=== PATIENT | female | born 1960 | race Caucasian/White ===

== ENCOUNTER → 2019-08-04 14:24 | Outpatient (CLI) | payer OTHER, SELFPAY ==
--- NOTE | ~2019-08-04 | MM_ITS ---
EXAMINATION: MM screening keanu BI w jair HISTORY: Screening mammogram TECHNIQUE: Craniocaudal and mediolateral oblique 3-D tomosynthesis images were obtained and synthetic 2-D images were generated. CAD analysis was submitted and interpreted. COMPARISON: 07/30/2014, 02/21/2013, 09/01/2010 BREAST PARENCHYMAL COMPOSITION: The breasts are heterogeneously dense, which may obscure small masses . FINDINGS: Scattered benign-appearing calcifications are present. There is no evidence of suspicious m ass, calcification, or architectural distortion to suggest malignancy in either breast. There has bee n no suspicious interval change. IMPRESSION: 1. No mammographic evidence of malignancy. 2. Recommend routine screening mammography in one year. BI-RADS Category 2: Benign finding(s). Reviewed, dictated and finalized at location A. GER GRAPHIC
--- NOTE | ~2019-08-04 | DEXA_ITS ---
Bone Density Report Name: Юлия Hadley Age: 59 Sex: Female Ethnicity: White Date of : 1960 Indication: osteopenia; asthma or emphysema; hysterectomy; postmenopausal Referring Provider: Pablo Scruggs Study: Bone densitometry was performed. Exam Date: August 04, 2019 Accession number: [id number] Bone Density: Region BMD T-score Z-score Classification AP Spine (L1-L4) 0.864 -1.7 -0.2 Osteopenia Femoral Neck (Left) 0.593 -2.3 -1.0 Osteopenia Total Hip (Left) 0.712 -1.9 -0.9 Osteopenia Femoral Neck (Right) 0.580 -2.4 -1.1 Osteopenia Total Hip (Right) 0.690 -2.1 -1.1 Osteopenia Total Hip Mean 0.701 -2.0 -1.0 Osteopenia World Health Organization criteria for BMD impression classify patients as: Normal (T-score at or above -1.0), Osteopenia (T-score between -1.0 and -2.5), or Osteoporosis (T-score at or below -2.5). 10-year Fracture Risk(1): Major Osteoporotic Fracture 10% Hip Fracture 1.8% Reported Risk Factors: [place] (), Neck BMD=0.580, BMI=22.0 (1) FRAX(R) Version 3.08. Fracture probability calculated for an untreated patient. Fracture probability may be lower if the patient has received treatment. Previous Exams: Region Exam Age BMD T-score BMD Change BMD Change Date g/cm2 vs Baseline vs Previous AP Spine(L1-L4) 08/04/2019 59 0.864 -1.7 -0.076* -0.052* 07/20/2013 53 0.916 -1.2 -0.024* -0.096* 05/04/2011 51 1.012 -0.3 0.072* 0.072* 03/26/2008 48 0.940 -1.0 Total Hip(Left) 08/04/2019 59 0.712 -1.9 -0.003 -0.079* 07/20/2013 53 0.791 -1.2 0.076* 0.035* 05/04/2011 51 0.756 -1.5 0.041* 0.041* 03/26/2008 48 0.715 -1.9 Total Hip(Right) 08/04/2019 59 0.690 -2.1 -0.054* -0.067* 07/20/2013 53 0.757 -1.5 0.013 0.028* 05/04/2011 51 0.729 -1.7 -0.015 -0.015 03/26/2008 48 0.744 -1.6 *Denotes significance at 95% confidence level, LSC for AP Spine = 0.022 g/cm2, LSC for Total Hip = 0.027 g/cm2 Clinical Information Provided by Patient: Has used the following medications: Vitamin D, Calcium, MTV Has the following medical conditions: Asthma or Emphysema, Hysterectomy Patient maximum height was 62 Menopause Age: 38 Drinks caffeinated beverages Onset of menses at age 12 Number of children 1 Impression: The patient has
== END ==
PROVIDERS: PCP Family Medicine; Visit Provider Physician Assistant
DX: Z12.31 Encounter for screening mammogram for malignant neoplasm of breast (principal); M85.88 Other specified disorders of bone density and structure, other site; M85.852 Other specified disorders of bone density and structure, left thigh; M85.851 Other specified disorders of bone density and structure, right thigh
CPT/HCPCS: 77063; 77067; 77080

== ENCOUNTER 2022-05-04 10:22 | Outpatient (CLI) | payer OTHER, SELFPAY ==
--- NOTE | ~2022-05-04 | XR_ITS ---
XR chest 2V DATE: 05/04/2022 10:43 INDICATION: Productive cough for 4 weeks TECHNIQUE: PA and lateral views COMPARISON: None FINDINGS: Normal heart size. No hilar or mediastinal enlargement. Mild bilateral hyperinflation of the lungs. No pulmonary infiltrate or consolidation, pleural effusio n or pulmonary vascular congestion or pneumothorax. Included skeletal structures are unremarkable. IMPRESSION: No active cardiopulmonary disease Reviewed, dictated and finalized at location A. TER SUBMARINE CABLE
== END 2022-05-04 10:23 | disposition home or self-care (01) ==
PROVIDERS: PCP Family Medicine; Visit Provider Physician Assistant
DX: R05.9 Cough, unspecified (principal)
CPT/HCPCS: 71046

== ENCOUNTER 2022-05-13 11:25 | Emergency (ER) | payer OTHER, SELFPAY ==
--- NOTE | ~2022-05-13 | XR_ITS ---
EXAMINATION: XR chest 1V portable 05/13/2022 11:55 INDICATION: Cough for 5 weeks PROCEDURE: AP portable chest COMPARISON: 05/04/2022 FINDINGS: The lungs are clear. The cardiomediastinal silhouette is within normal limits. There are no pleural effusions. There is no pneumothorax suspected. The lungs are hyperinflated which is cons istent with, but not diagnostic of chronic obstructive pulmonary disease. IMPRESSION: 1: NO ACUTE CARDIOPULMONARY DISEASE. Reviewed, dictated and finalized at location B. OMER ASSOCIATE
[2022-05-13 11:36] VITALS: BP 126/66; PULSE 97; RESP 18; TEMP 37.3; O2SAT 98
--- NOTE | 2022-05-13 12:11 | ECG_ITS ---
Measurements Intervals [place] Rate: 79 P: 60 MA: 158 QRS: 7 QRSD: 88 T: 38 QT: 361 QTc: 414 Interpretive Statements SINUS RHYTHM DELAYED PRECORDIAL R/S TRANSITION BASELINE ARTIFACT- III BORDERLINE ECG NO PREVIOUS ECG AVAILABLE FOR COMPARISON Electronically Signed On 05-13-2022 15:27:35 SECURITIES CLERK by Jordon Painter D.O.
--- NOTE | 2022-05-13 12:13 | ED.URI ---
HPI - URI/Sore Throat General Chief Complaint: Upper Respiratory Infection Stated Complaint: cough, sob since 04/08 Time Seen by Provider: 05/13/22 12:01 History of Present Illness HPI Narrative: Patient is a 62-year-old female with a history of asthma presenting with URI symptoms and chest pain. Patient states that about a month ago she was on vacation and came down with a cold. She has continued to have nasal congestion and cough since that time. She saw her PCP several weeks ago who started her on oral steroids, steroid inhaler, cough medicine. Said this helped temporarily but unfortunately the symptoms have continued. Today, she developed left-sided chest pain that is worse with inspiration, cough, movement. Reports mild shortness of breath. No fevers or chills, headache, numbness or weakness, lightheadedness, abdominal pain, vomiting, leg swelling, dysuria. Reports intermittent chronic diarrhea. Related Data Allergies Allergy/AdvReac Type Severity Reaction Status Date / Time cat dander Allergy Unknown sneezing Verified 04/27/22 11:37 mold Allergy Unknown Unknown Verified 04/27/22 11:37 Review of Systems Review of Systems: All systems reviewed & are unremarkable except as noted in HPI and below Constitutional: Constitutional: Denies chills, Denies fever(s) and Denies weakness Respiratory: Respiratory: Reports chest congestion and Reports cough PMFSH Past Medical History Medical History Diffuse cystic mastopathy Irritable bowel syndrome Family History Family History Father Diabetes mellitus Grandparent Diabetes mellitus Hypertension Family history of cardiovascular disease Family history of Alzheimer's disease Mother Family history of rheumatoid arthritis Family history of Alzheimer's disease, Onset Age: 70 Other No family history of malignant neoplasm Social History Social History Smoking status: Never smoker Alcohol intake: current Exam Narrative: GENERAL: in no acute distress, nontoxic, intermittently coughing HEAD: Normocephalic, atraumatic. EYES: PERRLA and EOMI. ENT: Nares clear, no rhinorrhea or epistaxis. Mucous membranes moist. NECK: Supple. CHEST: Clear to auscultation. No respiratory distress. HEART: Regular rate and rhythm. No murmur heard. Normal peripheral pulses. ABDOMEN: Soft, nontender, nondistended, normal active bowel sounds. EXTREMITIES: Normal range of motion. No edema. SKIN: Warm, dry, no rash. NEURO: No focal deficits. Alert and oriented x3. PSYCH: Normal mood and affect. Course Vital Signs Vital signs: Vital Signs Temperature 99.2 F 05/13/22 11:36 Pulse Rate 97 05/13/22 11:36 Respiratory Rate 18 05/13/22 11:36 Blood Pressure 126/66 05/13/22 11:36 Pulse Oximetry 98 05/13/22 11:36 Oxygen Delivery Room Air 05/13/22 11:36 Temperature 99.2 F 05/13/22 11:36 Pulse Rate 89 05/13/22 16:27 Respiratory Rate 18 05/13/22 16:27 Blood Pressure 146/88 H 05/13/22 16:27 Pulse Oximetry 97 05/13/22 16:27 Oxygen Delivery Room Air 05/13/22 11:36 MDM - URI/Sore Throat MDM Narrative Medical decision making narrative: Patient is a 62-year-old female presenting with a month of URI symptoms and 1 day of chest pain. Vitals within normal limits. Patient is nontoxic and in no acute distress. Exam is otherwise remarkable for the above. Chest x-ray shows no acute abnormalities. EKG per my interpretation shows normal sinus rhythm, normal axis and intervals, no ST elevations or depressions. Tropes x2 are negative. Patient is positive for influenza A. Blood work is otherwise unremarkable. Discussed appropriate supportive care and return precautions. Advised PCP follow-up. Patient voiced understanding and is agreeable to plan. Discharged in stable condition. [facility]
[2022-05-13] MEDS: KETOROLAC 15 MG/ML VIAL (*BKC) IV PUSH (12:26)
[2022-05-13] MEDS: SODIUM CHLORIDE 0.9% IV 1,000 ML 999 ML IV CONT (12:27)
[2022-05-13 12:34] LABS: Basophils Percent Auto 0.6 % (0.2-1.2); Eosinophils Absolute Auto 0.1 K/mm3 (0-0.3); Eosinophils Percent Auto 1.5 % (0-4.4); Hematocrit 40.8 % (37.0-47.0); Hemoglobin 13.7 g/dL (12.0-15.0); Immature Granulocyte Absolute 0.01 K/mm3 (0.00-0.031); Immature Granulocyte Percent A 0.2 % (0-0.5); Lymphocytes Absolute Auto 0.93 K/mm3 (0.9-3.2); Lymphocytes Percent Auto 19.9 % (18.3-44.2); Mean Corpuscular HGB Conc 33.6 g/dl (32-36); Mean Corpuscular Hemoglobin 32.2 pg (26-34); Mean Platelet Volume 9.7 fl (7.4-10.4); Monocytes Absolute Auto 0.7 K/mm3 (0.1-0.6); Monocytes Percent Auto 15.8 % (2.6-8.5); Neutrophils Absolute Auto 2.9 K/mm3 (1.3-6.7); Platelet Count Result 193 k/mm3 (150-375); Red Blood Count 4.25 M/mm3 (4.2-5.4); Red Cell Distribution Width 13.4 % (11.5-14.5); White Blood Count 4.7 K/mm3 (4.5-10.0)
[2022-05-13 12:44] LABS: Alanine Aminotransferase 34 U/L (6-35); Albumin Level 4.4 g/dL (3.5-5.1); Alkaline Phosphatase 69 U/L (38-126); Anion Gap 6 mmol/L (8-16); Aspartate Amino Transferase 48 U/L (14-36); Bilirubin,Total 0.4 mg/dL (0.2-1.3); Blood Urea Nitrogen 11 mg/dL (7-17); Calcium 9.4 mg/dL (8.4-10.2); Carbon Dioxide 26 mmol/L (22-30); Chloride 103 mmol/L (98-107); Estimated CRCL calculation 56 ml/min; Estimated Glomerular Filt Rate > 60; Glucose 92 mg/dL (65-110); Potassium 3.7 mmol/L (3.4-5.0); Sodium 135 mmol/L (137-145)
[2022-05-13 12:54] LABS: D Dimer 0.44 ug/mL (<0.48)
[2022-05-13 12:55] LABS: Troponin I < 0.012 ng/mL (0.000-0.034)
[2022-05-13 13:11] LABS: Influenza A QL RT-PCR Positive (Negative); Influenza B QL RT-PCR Negative (Negative); RSV RNA, RT-PCR Negative (Negative); SARS-CoV-2 RNA PCR Negative
[2022-05-13 13:56] VITALS: BP 136/84; PULSE 90; RESP 16; O2SAT 98
[2022-05-13 16:08] LABS: Troponin I < 0.012 ng/mL (0.000-0.034)
[2022-05-13 16:27] VITALS: BP 146/88; PULSE 89; RESP 18; O2SAT 97
== END 2022-05-13 16:28 | disposition home or self-care (01) ==
PROVIDERS: Emergency Medicine; Emergency Provider Emergency Medicine; PCP Family Medicine
DX: J10.1 Influenza due to other identified influenza virus with other respiratory manifestations (principal); N60.19 Diffuse cystic mastopathy of unspecified breast; K58.9 Irritable bowel syndrome, unspecified; Z20.822 Contact with and (suspected) exposure to COVID-19; R94.31 Abnormal electrocardiogram [ECG] [EKG]
CPT/HCPCS: 36415; 71045; 80053; 84484; 85025; 85380; 87637; 93005; 96365; 96366; 96375; 99284; J0131; J1885; J7030

== ENCOUNTER 2022-05-21 14:39 | Outpatient (CLI) | payer OTHER, SELFPAY ==
[2022-05-21 18:56] LABS: Cholesterol 269 mg/dL (0-200); HDL Direct 88 mg/dL; Triglycerides 109 mg/dL (<150)
[2022-05-21 19:07] LABS: LDL Cholesterol Direct 110 mg/dL
[2022-05-23 11:38] LABS: NIL 0.02 IU/mL; Quantiferon TB Plus, 1T NEGATIVE (NEGATIVE); TB1-NIL 0.05 IU/mL; TB2-NIL 0.04 IU/mL
[2022-05-26 17:38] LABS: EBV Nuclear Ab Interpretation Past; EBV Virus Capsid Ag IgM Ab <36.00 U/mL (<36.00)
== END 2022-05-21 14:40 | disposition home or self-care (01) ==
LOC: ANHGOSHLAB 14:41
PROVIDERS: PCP Family Medicine; Referring Provider Physician Assistant; Visit Provider Family Medicine
DX: J45.901 Unspecified asthma with (acute) exacerbation (principal); E78.5 Hyperlipidemia, unspecified
CPT/HCPCS: 36415; 80061; 86480; 86664; 86665

== ENCOUNTER 2022-06-29 15:02 | Outpatient (CLI) | payer OTHER, SELFPAY ==
--- NOTE | 2022-06-29 17:37 | P.PCNPFT_ITS ---
PFT Procedure Performed PFT Procedure Performed Spirometry with Pre/Post Bronchodilator PFT Interpretation This is a pulmonary function test with pre and post-bronchodilator spirometry. The test was performed and results interpreted in accordance with the 2019 and 2005 ATS/ERS Task Force guidelines respectively using the Global Lung Function Initiative-2012 reference equations. Patient demonstrated good effort and cooperation. Reproducibility criteria were met. The quality of the pre bronchodilator spirometry maneuver was Grade A and post bronchodilator spirometry maneuver was Grade A. Findings: Spirometry: the contour the inspiratory and expiratory flow tracing are normal. The pre bronchodilator FVC is 2.62 L, 92% predicted. The pre bronchodilator FEV1 is 2.08 L, 93% predicted. The pre bronchodilator FEV1: FVC ratio 79%. The post bronchodilator FVC is 2.52 L, representing a 4% decrease. The post bronchodilator FEV1 is 2.15 L, representing a 4% increase. The post bronchodilator FVC:FEV1 ratio is 86%. Impression: The spirometry is normal without evidence of an obstructive abnormal ity. There is no significant improvement after inhaling a single dose of albuterol. There are no prior studies for comparison
== END 2022-06-29 15:03 | disposition home or self-care (01) ==
LOC: ANHPFT 15:03
PROVIDERS: PCP Family Medicine; Visit Provider Internal Medicine Pulmonary Disease
DX: J45.20 Mild intermittent asthma, uncomplicated (principal)
CPT/HCPCS: 94060

== ENCOUNTER 2022-11-10 09:50 | Outpatient (CLI) | payer OTHER, SELFPAY ==
--- NOTE | ~2022-11-10 | XR_ITS ---
EXAM: XR finger 1st LT min 2V DATE: 11/10/2022 10:00 HISTORY: Pain at base of L thumb for years no injury . COMPARISON: None available. FINDINGS: Decreased mineralization. No fracture or dislocation. No lytic or blastic lesion. Moderate degenerative change at the triscaphe joint. Mild degenerative changes in the trapeziometacarpal join t, first and second MCP joints, and thumb interphalangeal joint. No erosion or periosteal change. Sof t tissues within normal limits. 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 Reviewed, dictated and finalized at location K.
== END 2022-11-10 09:51 ==
LOC: GOSHIMG 09:52
PROVIDERS: PCP Family Medicine; Visit Provider Family Medicine
DX: M19.042 Primary osteoarthritis, left hand (principal)
CPT/HCPCS: 73140

== ENCOUNTER 2023-03-01 12:35 | Outpatient (CLI) | payer OTHER, SELFPAY ==
[2023-03-01 19:34] LABS: Basophils Absolute Auto 0.1 K/mm3 (0.0-0.1); Basophils Percent Auto 0.8 % (0.2-1.2); Eosinophils Absolute Auto 0.1 K/mm3 (0-0.3); Eosinophils Percent Auto 1.2 % (0-4.4); Hematocrit 40.5 % (37.0-47.0); Hemoglobin 13.4 g/dL (12.0-15.0); Immature Granulocyte Absolute 0.01 K/mm3 (0.00-0.031); Immature Granulocyte Percent A 0.2 % (0-0.5); Lymphocytes Absolute Auto 2.04 K/mm3 (0.9-3.2); Lymphocytes Percent Auto 31.1 % (18.3-44.2); Mean Corpuscular HGB Conc 33.1 g/dl (32-36); Mean Corpuscular Hemoglobin 32.4 pg (26-34); Mean Corpuscular Volume 97.8 fl (80-100); Mean Platelet Volume 10.7 fl (7.4-10.4); Monocytes Absolute Auto 0.6 K/mm3 (0.1-0.6); Monocytes Percent Auto 9.6 % (2.6-8.5); Neutrophils Absolute Auto 3.7 K/mm3 (1.3-6.7); Neutrophils Percent Auto 57.1 % (45.5-73.1); Platelet Count Result 259 k/mm3 (150-375); Red Blood Count 4.14 M/mm3 (4.2-5.4); Red Cell Distribution Width 12.7 % (11.5-14.5); White Blood Count 6.6 K/mm3 (4.5-10.0)
[2023-03-01 19:51] LABS: Anion Gap 5 mmol/L (8-16); Blood Urea Nitrogen 20 mg/dL (7-17); Carbon Dioxide 30 mmol/L (22-30); Chloride 101 mmol/L (98-107); Estimated Glomerular Filt Rate > 60; Glucose 94 mg/dL (65-110); Potassium 4.3 mmol/L (3.4-5.0); Sodium 136 mmol/L (137-145)
== END 2023-03-01 12:36 | disposition home or self-care (01) ==
LOC: ANHGOSHLAB 12:37
PROVIDERS: PCP Family Medicine; Visit Provider Family Medicine
DX: R53.83 Other fatigue (principal)
CPT/HCPCS: 36415; 80048; 84443; 85025

== ENCOUNTER 2023-04-02 08:13 | Outpatient (CLI) | payer OTHER, SELFPAY ==
--- NOTE | 2023-04-21 14:46 | WPDHOMESLEEP ---
Sleep Study - Home Unattended Date of Study: 04/02/23 Ordering Provider: Pbalo Scruggs PA-C Interpreting Provider: Sylvia Carbajal, DO Home Sleep Study Type: Watch PAT Height: 1.57 m Weight: 56.699 kg Body Mass Index: 22.8 Neck Circumference (inches): 13 [place]: 5 Reason for Sleep Study Daytime hypersomnia, unrefreshing sleep Sleep History The patient is a 63-year-old female with heart palpitations, irritable bowel syndrome, allergies and asthma and depression that had sleep study ordered by her primary care for evaluation sleep apnea. The patient rarely awakens from sleep short of breath. She occasionally awakens at night with heartburn, belching or cough. She frequently snores but it is rarely loud enough that others complain. She occasionally has trouble sleeping when she has a cold. She denies waking up gasping for air throughout the night. She occasionally has breathing problems at night observed by herself or others. She rarely sweats excessively at night. She rarely has heart palpitations or irregular heartbeats during the night. She frequently falls asleep during the day but never while driving. She denies sleep paralysis, cataplexy and hypnagogic / hypnopompic hallucinations. She denies feeling afraid of going to sleep. She rarely has nightmares and rarely remembers her dreams. She rarely feels sad or depressed. She occasionally has anxiety. She occasionally has muscular tension. She occasionally notices parts of her body jerk. She frequently kicks during the night. She occasionally has crawling and aching feelings in her legs but rarely has leg pain during the night. She denies awakening with morning jaw pain. She is occasionally bothered by pain during the day but rarely awakened by pain during the night. She rarely wakes up feeling stiff in the morning. She rarely wakes up with sore or achy muscles. She occasionally wakes up with pain neck, spine or other joints. She goes to bed between 9:30 to 10:30 p.m. on both weekdays and weekends. She is able to fall asleep relatively quickly. She wakes up once at most throughout the night for unknown reasons but is able to fall back asleep within a few minutes. She wakes up between 6:30-730 a.m. on both weekdays and weekends. She typically gets 9-10 hours of sleep per night. She will stay in bed for a few minutes after waking up in the morning. She currently lives with her . She denies consuming any caffeinated beverages within 2 hours of bedtime. She denies engaging in physical exercise before bedtime. She will read and watch television before falling asleep. She will take naps in the afternoon or the evening but they are not refreshing. She consumes 2 caffeinated beverages per day. She consumes 2 alcoholic beverages per day. She denies tobacco use. She currently uses THC for insomnia. REPLACED BY [facility] Past Medical History Medical History Diffuse cystic mastopathy Irritable bowel syndrome Seborrheic keratoses, inflamed Family History Family History Father Diabetes mellitus Grandparent Diabetes mellitus Hypertension Family history of cardiovascular disease Family history of Alzheimer's disease Mother Family history of rheumatoid arthritis Family history of Alzheimer's disease, Onset Age: 70 Other No family history of malignant neoplasm Social History Social History Smoking status: Never smoker Alcohol intake: current Lack of Transportation: No Lack of Food: Never True Current Housing: I Have Housing Concerned About Future Housing: No Difficulty Paying Gas/Electric Bills: No Difficulty Paying for Meds: No Currently Unemployed: No Education: Master's Degree or Higher Difficulty w/ Childcare or Family Care: No Medications Home Medications
[2023-04-21 14:48] VITALS: BMI 22.8
== END 2023-04-05 10:47 | disposition home or self-care (01) ==
LOC: ANHCSM 08:42
PROVIDERS: PCP Family Medicine; Visit Provider Physician Assistant
DX: R06.83 Snoring (principal)
CPT/HCPCS: 95800